=== PATIENT | female | born 1975 | race Caucasian/White ===

== ENCOUNTER 2020-03-24 09:05 | Emergency (ER) | payer OTHER ==
[2020-03-24] MEDS ORDERED: KETOROLAC 30 MG/ML INJ ONE (09:48)
--- NOTE | 2020-03-24 10:53 | ER ---
Nurse's Notes [facility] Name: Haley Cruz Age: 44 yrs Sex: Female : 1975 Arrival Date: 03/24/2020 Time: 09:08 Bed 15 Private MD: Diagnosis: Other sprain of left shoulder joint Presentation: 03/24 09:27 Chief complaint: Patient states: yesterday her dog pulled her on the leash, felt a pop iw in left shoulder, has had pain since then. Coronavirus screen: At this time, the client does not indicate any symptoms associated with coronavirus-19. Ebola Screen: Patient negative for fever greater than or equal to 101.5 degrees Fahrenheit, and additional compatible Ebola Virus Disease symptoms Patient denies exposure to infectious person. Patient denies travel to an Ebola-affected area in the 21 days before illness onset. No symptoms or risks identified at this time. Initial Sepsis Screen: Does the patient meet any 2 criteria? No. Patient's initial sepsis screen is negative. Does the patient have a suspected source of infection? No. Patient's initial sepsis screen is negative. Risk Assessment: Do you want to hurt yourself or someone else? Patient reports no desire to harm self or others. Onset of symptoms was March 23, 2020. 09:27 Method Of Arrival: Ambulatory iw 09:27 Acuity: VU 4 iw Historical: - Allergies: 09:30 doesn't take pain pills; iw - Home Meds: 09:30 None [Active]; iw - PMHx: 09:30 None; iw - PSHx: 09:30 fibroid removal X 2; iw - Immunization history:: Adult Immunizations. - Social history:: Smoking status: Patient denies any tobacco usage or history of. Screenin:40 Abuse screen: Denies threats or abuse. Denies injuries from another. Nutritional jr10 screening: No deficits noted. Tuberculosis screening: No symptoms or risk factors identified. Fall Risk None identified. Assessment: 09:40 General: Appears uncomfortable, Behavior is calm, cooperative, appropriate for age. jr10 Pain: Complains of pain in anterior aspect of left shoulder and posterior aspect of left shoulder. Respiratory: No deficits noted. Airway is patent Respiratory effort is even, unlabored, Respiratory pattern is regular, symmetrical. Derm: No deficits noted. No signs and/or symptoms reported regarding the dermatologic system. Musculoskeletal: Circulation, motion, and sensation intact. Capillary refill < 3 seconds, Range of motion: limited in left shoulder Swelling absent Reports pain in anterior aspect of left shoulder and posterior aspect of left shoulder. Vital Signs: 09:27 BP 133 / 91; Pulse 86; Resp 16; Temp 97.6; Pulse Ox 98% on R/A; Weight 86.18 kg; Height iw 5 ft. 2 in. (157.48 cm); Pain 5/10; 11:32 BP 128 / 87; Pulse 87; Resp 17; Pulse Ox 98% on R/A; Pain 2/10; jr10 09:27 Body Mass Index 34.75 (86.18 kg, 157.48 cm) ED Course: 09:08 Patient arrived in ED. ag5 09:09 Dori Bethea FNP-C is PSYCHIATRICP. snw 09:09 Frederick Orozco MD is Attending Physician. snw 09:29 Triage completed. iw 09:30 Arm band placed on. iw 09:34 Anabela Noel, BETTY is Primary Nurse. jr10 09:40 Patient has correct armband on for positive identification. Bed in low position. Call jr10 light in reach. Side rails up X 1. 09:40 No provider procedures requiring assistance completed. Patient did not have IV access jr10 during this emergency room visit. Sling applied to left arm. 10:43 XRAY Shoulder LEFT 2 view In Process Unspecified. EDMS Administered Medications: 09:43 Drug: TORadol 30 mg Route: IM; Site: right gluteus; jr10 11:30 Follow up: Response: No adverse reaction; Pain is decreased jr10 Outcome: 10:53 Discharge ordered by . snw 11:32 Discharged to home ambulatory. jr10 11:32 Condition: improved 11:32 Discharge instructions given to patient, Instructed on discharge instructions, follow up and referral plans. Demonstrated understanding of instructions, follow-up care, medications, Prescriptions given X 3. 11:33 Patient left the ED. jr10 Signatures: Dispatcher [employer] EDMS oDri Bethea FNP-C FNP-Nicole Hall RN RN Cathi Leal ag5 Anabela Noel RN RN jr10
--- NOTE | 2020-03-24 10:54 | EDPHYS ---
Physician Documentation [facility] Name: Haley Cruz Age: 44 yrs Sex: Female : 1975 Arrival Date: 03/24/2020 Time: 09:08 Bed 15 Private MD: ED Physician Frederick Orozco HPI: 03/24 10:06 This 44 yrs old Female presents to ER via Ambulatory with complaints of snw Shoulder Injury. 10:06 The patient or guardian complains of decreased range of motion, pain. left shoulder and snw left trapezius. Context: The problem was sustained outdoors, resulted from Dog pulled on leash and drug pt, pt felt left shoulder pop, The patient experiences decreased range of motion. Onset: The symptoms/episode began/occurred suddenly, yesterday. Associated signs and symptoms: The patient has no apparent associated signs or symptoms. Severity of symptoms: At their worst the symptoms were moderate, in the emergency department the symptoms are unchanged. Treatment prior to arrival includes: no previous treatment. The patient has not experienced similar symptoms in the past. The patient has not recently seen a physician. Historical: - Allergies: 09:30 doesn't take pain pills; iw - Home Meds: :30 None [Active]; iw - PMHx: :30 None; iw - PSHx: :30 fibroid removal X 2; iw - Immunization history:: Adult Immunizations. - Social history:: Smoking status: Patient denies any tobacco usage or history of. ROS: 10:05 Constitutional: Negative for fever, chills, and weight loss, Eyes: Negative for injury, snw pain, redness, and discharge, ENT: Negative for injury, pain, and discharge, Neck: Negative for injury, pain, and swelling, Cardiovascular: Negative for chest pain, palpitations, and edema, Respiratory: Negative for shortness of breath, cough, wheezing, and pleuritic chest pain, Abdomen/GI: Negative for abdominal pain, nausea, vomiting, diarrhea, and constipation, Back: Negative for injury and pain, : Negative for injury, bleeding, discharge, and swelling, Skin: Negative for injury, rash, and discoloration, Neuro: Negative for headache, weakness, numbness, tingling, and seizure, Psych: Negative for depression, anxiety, suicide ideation, homicidal ideation, and hallucinations. 10:05 MS/extremity: Positive for injury or acute deformity, decreased range of motion, pain, of the left shoulder. Exam: 10:04 Constitutional: This is a well developed, well nourished patient who is awake, alert, snw and in no acute distress. Head/Face: Normocephalic, atraumatic. Eyes: Pupils equal round and reactive to light, extra-ocular motions intact. Lids and lashes normal. Conjunctiva and sclera are non-icteric and not injected. Cornea within normal limits. Periorbital areas with no swelling, redness, or edema. ENT: Nares patent. No nasal discharge, no septal abnormalities noted. Tympanic membranes are normal and external auditory canals are clear. Oropharynx with no redness, swelling, or masses, exudates, or evidence of obstruction, uvula midline. Mucous membranes moist. Neck: Trachea midline, no thyromegaly or masses palpated, and no cervical lymphadenopathy. Supple, full range of motion without nuchal rigidity, or vertebral point tenderness. No Meningismus. Chest/axilla: Normal chest wall appearance and motion. Nontender with no deformity. No lesions are appreciated. Cardiovascular: Regular rate and rhythm with a normal S1 and S2. No gallops, murmurs, or rubs. Normal PMI, no JVD. No pulse deficits. Respiratory: Lungs have equal breath sounds bilaterally, clear to auscultation and percussion. No rales, rhonchi or wheezes noted. No increased work of breathing, no retractions or nasal flaring. Abdomen/GI: Soft, non-tender, with normal bowel sounds. No distension or tympany. No guarding or rebound. No evidence of tenderness throughout. Back: No spinal tenderness. No costovertebral tenderness. Full range of motion. Skin: Warm, dry with normal turgor. Normal color with no rashes, no lesions, and no evidence of cellulitis. Neuro: Awake and alert, GCS 15, oriented to person, place, time, and situation. Cranial nerves II-XII grossly intact. Motor strength 5/5 in all extremities. Sensory grossly intact. Cerebellar exam normal. Normal gait. Psych: Awake, alert, with orientation to person, place and time. Behavior, mood, and affect are within normal limits. 10:04 Musculoskeletal/extremity: Extremities: grossly normal except: noted in the left anterior shoulder/clavicle: decreased ROM, tenderness, ROM: limited active range of motion due to pain, limited passive range of motion due to pain, in the left shoulder, Circulation is intact in all extremities. Sensation intact. Vital Signs: 09:27 BP 133 / 91; Pulse 86; Resp 16; Temp 97.6; Pulse Ox 98% on R/A; Weight 86.18 kg; Height iw 5 ft. 2 in. (157.48 cm); Pain 5/10; 11:32 BP 128 / 87; Pulse 87; Resp 17; Pulse Ox 98% on R/A; Pain 2/10; jr10 09:27 Body Mass Index 34.75 (86.18 kg, 157.48 cm) iw MDM: 09:41 Patient medically screened. snw 10:55 Data reviewed: vital signs, nurses notes. Data interpreted: Pulse oximetry: on room air snw is 98 %. Interpretation: normal. Counseling: I had a detailed discussion with the patient and/or guardian regarding: the historical points, exam findings, and any diagnostic results supporting the discharge/admit diagnosis, radiology results, the need for outpatient follow up, to return to the emergency department if symptoms worsen or persist or if there are any questions or concerns that arise at home. Special discussion: I have referred the patient to see his PCP for further evaluation of high blood pressure. Based on the history and exam findings, there is no indication for further emergent testing or inpatient evaluation. I discussed with the patient/guardian the need to see the orthopedic surgeon for further evaluation of the symptoms. I discussed with the patient/guardian the need to see the primary care provider for further evaluation of the symptoms. 03/24 09:31 Order name: XRAY Shoulder LEFT 2 view; Complete Time: 11:03 snw 03/24 10:52 Order name: Sling; Complete Time: 11:30 snw Administered Medications: 09:43 Drug: TORadol 30 mg Route: IM; Site: right gluteus; jr10 11:30 Follow up: Response: No adverse reaction; Pain is decreased jr10 Disposition: 16:22 Co-signature as Attending Physician, Frederick Orozco MD. rn Disposition: 03/24/20 10:53 Discharged to Home. Impression: Other sprain of left shoulder joint. - Condition is Stable. - Discharge Instructions: RICE for Routine Care of Injuries, Shoulder Pain, Shoulder Range of Motion Exercises, Shoulder Sprain, How to Use a Sling. - Prescriptions for Mobic 7.5 mg Oral Tablet - take 1 tablet by ORAL route every 12 hours take with food; 20 tablet. orphenadrine citrate 100 mg Oral Tablet Sustained Release - take 1 tablet by ORAL route 2 times per day As needed; 20 tablet. promethazine 25 mg Oral Tablet - take 1 tablet by ORAL route every 6 hours As needed; 20 tablet. - Work release form, Medication Reconciliation Form, Thank You Letter, Antibiotic Education, Prescription Opioid Use form. - Follow up: Emergency Department; When: As needed; Reason: Worsening of condition. Follow up: Private Physician; When: 2 - 3 days; Reason: Recheck today's complaints, Continuance of care, Re-evaluation by your physician. Signatures: Dispatcher [employer] EDDori Kellogg, BIJAL-C DISTRICT SUPERVISOR-[employer] Nicole Young RN RN iw Nieto, Roman, MD MD rn Rivera, Jessica, RN RN jr10 Corrections: (The following items were deleted from the chart) 11:33 10:53 03/24/2020 10:53 Discharged to Home. Impression: Other sprain of left shoulder jr10 joint. Condition is Stable. Forms are Medication Reconciliation Form, Thank You Letter, Antibiotic Education, Prescription Opioid Use. Follow up: Emergency Department; When: As needed; Reason: Worsening of condition. Follow up: Private Physician; When: 2 - 3 days; Reason: Recheck today's complaints, Continuance of care, Re-evaluation by your physician. snw
--- NOTE | 2020-03-24 11:01 | RAD REPORT ---
EXAM DESCRIPTION: RAD - Shoulder Left 2 View - 03/24/2020 10:44 am CLINICAL HISTORY: Left shoulder pain FINDINGS: No fracture or dislocation is seen.
[2020-03-27 05:58] VITALS: TEMP 97.6; O2SAT 98
[2020-03-27 05:59] VITALS: BP 128/87
== END 2020-03-24 11:33 | disposition home or self-care (01) ==
LOC: ER 09:05
DX: S43.492A Other sprain of left shoulder joint, initial encounter (principal); X58.XXXA Exposure to other specified factors, initial encounter; Y93.K1 Activity, walking an animal; Y92.89 Other specified places as the place of occurrence of the external cause
CPT/HCPCS: 96372; 99284